=== PATIENT | male | born 1985 | race African-American/Black ===

== ENCOUNTER 2019-03-11 03:37 | Emergency (ER) | payer SELFPAY ==
[2019-03-11 03:51] VITALS: BP 128/69
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
[2019-03-11] MEDS ORDERED: Lidocaine 1% 5ml 10 MG/ML VIAL IM ONE (04:04)
[2019-03-11] MEDS ORDERED: DIPH,PERTUSS(ACELL),TET VAC/PF 0.5 ML DISP.SYRIN IM ONE (04:05)
[2019-03-11] MEDS ORDERED: KETOROLAC TROMETHAMINE 60 MG/2 ML VIAL IM ONE (04:06)
== END 2019-03-11 05:30 | disposition home or self-care (01) ==
LOC: ED 03:37
DX: S51.812A Laceration without foreign body of left forearm, initial encounter (principal); V68.9XXA Unspecified occupant of heavy transport vehicle injured in noncollision transport accident in traffic accident, initial encounter
CPT/HCPCS: 12005; 90715; 96372; 99282; 99284; J1885